=== PATIENT | female | born 1960 | race Caucasian/White ===

== ENCOUNTER 2017-08-07 03:19 | Emergency (ER) | payer BC ==
[~2017-08-07] VITALS: Ht 157.5 cm; Wt 63.5 kg
[~2017-08-07 03:19] MED LIST: ANTIVERT25 MG PO; ESCITALOPRAM OX20 MG PO; ESOMEPRAZOLE MA40 MG PO; ESTROGEN-METHY1 EAC2 PO; ESZOPICLONE3 MG PO; KEFLEX500 MG PO; LORAZEPAM0.5 MG PO; NOHOMEMEDS; VALIUM2 MG PO
[2017-08-07 03:46] LABS: HEMATOCRIT 38.6 % (36.0-46.0); MCH 30.4 PG (29.0-34.0); MCHC 35.2 G/DL (30.0-36.0); MCV 86.4 FL (83-99); MEAN PLAT.VOLUME 9.6 uM^3 (9.5-12.4); PLATELET COUNT 298 K/uL (156-360); RBC DIS.WIDTH-CV 12.6 % (11.8-14.6); RBC DIS.WIDTH-SD 39.9 % (39-53); RED BLOOD COUNT 4.47 M/uL (3.80-5.20); WHITE BLOOD COUNT 6.2 K/uL (4.1-10.2)
[2017-08-07 03:54] LABS: CHLORIDE 108 mEq/L (99-109); POTASSIUM 3.5 mEq/L (3.7-5.4); SODIUM 139 mEq/L (136-147)
[2017-08-07 03:56] LABS: GLUCOSE 145 mg/dL (70-99)
[2017-08-07 03:57] LABS: ANION GAP 10 MEQ/L (2-14)
[2017-08-07 04:00] LABS: GFR ESTIMATE (CALCULATED) > 59 mL/min/
[2017-08-07 04:01] LABS: UREA NITROGEN (BUN) 17 mg/dL (9-23)
[2017-08-07 05:11] LABS: ADD MIUA? YES; BILIRUBIN NEGATIVE; BLOOD LARGE; COLOR YELLOW ((YELLOW)); GLUCOSE (STRIP) NEGATIVE; KETONES NEGATIVE; LEUKOCYTES SMALL; NITRITE NEGATIVE; PROTEIN (STRIP) 30; SPECIFIC GRAVITY 1.015 (1.000-1.030); UROBILINOGEN 0.2 MG/DL (0.2-1.0)
[2017-08-07 05:20] LABS: BACTERIA NONE SEEN /HPF; EPITHELIAL CELLS RARE /HPF; MUCUS TRACE /LPF; RED BLOOD CELLS TNTC /HPF (0-5); UCUL ADDED? YES
[2017-08-07] MEDS ORDERED: FLOMAX0.4 MG PO (05:21)
[2017-08-07] MEDS ORDERED: ZOFRAN8 MG PO (05:21)
[2017-08-07] MEDS ORDERED: NORCO 5/3251 TABLET PO (05:21)
[2017-08-07 05:40] VITALS: BP 132/84
[2017-08-08] MEDS ORDERED: CIPRO500 MG PO (12:49)
== END 2017-08-07 05:44 | disposition home or self-care (01) ==
LOC: EME 03:19
PROVIDERS: Emergency Medicine
DX: N13.2 Hydronephrosis with renal and ureteral calculous obstruction (principal); R31.9 Hematuria, unspecified; Z87.442 Personal history of urinary calculi
CPT/HCPCS: 74176; 80048; 81003; 85027; 87086; 99281; 99285; J1885; J2405; J7030

== ENCOUNTER 2017-08-08 08:47 | Emergency (ER) | payer BC ==
[~2017-08-08] VITALS: Ht 160 cm; Wt 64.3 kg
[~2017-08-08 08:47] MED LIST changes: +FLOMAX0.4 MG PO; +NORCO 5/3251 TABLET PO; +ZOFRAN8 MG PO
[2017-08-08 11:07] LABS: ADD MIUA? YES; BILIRUBIN NEGATIVE; BLOOD LARGE; COLOR YELLOW ((YELLOW)); GLUCOSE (STRIP) NEGATIVE; KETONES NEGATIVE; LEUKOCYTES LARGE; NITRITE NEGATIVE; PROTEIN (STRIP) 30; SPECIFIC GRAVITY 1.011 (1.000-1.030); UROBILINOGEN 0.2 MG/DL (0.2-1.0)
[2017-08-08 11:22] LABS: BACTERIA RARE /HPF; EPITHELIAL CELLS RARE /HPF; MUCUS 2+ /LPF; RED BLOOD CELLS TNTC /HPF (0-5)
[2017-08-08] MEDS ORDERED: CIPRO500 MG PO (12:49)
[2017-08-08 13:24] VITALS: BP 139/92
== END 2017-08-08 13:27 | disposition home or self-care (01) ==
LOC: EME 08:47
PROVIDERS: Emergency Medicine
DX: N20.0 Calculus of kidney (principal); N39.0 Urinary tract infection, site not specified; Z87.442 Personal history of urinary calculi
CPT/HCPCS: 81003; 99281; 99284; J1885; J2405; J3010; J7030